=== PATIENT | female | born 1990 | race Caucasian/White ===

== ENCOUNTER 2019-04-20 23:36 | Emergency (ER) | payer BC, OTHER ==
[2019-04-20 23:40] VITALS: RESP 18; TEMP 97.3
[2019-04-20] MEDS ORDERED: DIPH,PERTUS(ACELL)TETVAC-LF 0.5 ML VIAL IM ONE (23:49)
[2019-04-20] MEDS ORDERED: LIDOCAINE 1% INJ 10MG/ML (20 ML MDV) SQ ONE (23:49)
[2019-04-20] MEDS ORDERED: AMOXIC-POT CLAV 875MG STARTER 2 EACH TABLET PO STA (23:49)
[2019-04-20] MEDS ORDERED: WATER FOR IRRIG, STERILE 1,000 ML BTL IRRIGATION ONE (23:50)
--- NOTE | 2019-04-20 23:59 | ED ---
Animal Bite HPI - General Chief Complaint: Animal Bite Stated Complaint: Dog Bite Time Seen by Provider: 04/20/19 23:41 Source: patient Mode of arrival: ambulatory Limitations: no limitations - History of Present Illness Initial Comments: 28-year-old female patient presents to the emergency department today for evaluation of dog bite. Patient states that she was at her friend's house, playing with the puppy when it bit her right arm and then a little later bit her left leg. States that there is no bleeding from the right arm wound however she's been having difficulty getting the wound to the left leg to stop bleeding. Patient denies any difficulty with ambulation. Denies numbness or tingling to the lower extremities. She is unsure when her last tetanus vaccine was given. She is unsure of the immunization status of the dog. She states her friend has had the puppy for the last 2-3 months. She denies taking any medication for pain. Denies any chance of . Patient denies any headache, neck pain, back pain, chest pain, shortness of breath, dizziness, weakness, abdominal pain, nausea, vomiting, or difficulties with bowel movements or urination. - Related Data Home Medications Medication Instructions Recorded Confirmed Cholecalciferol [Vitamin D3] 400 unit PO DAILY@1200 11/16/14 11/16/14 Vit No.124/Iron/Folic 1 each PO DAILY 11/16/14 11/16/14 [ Vitamin Tablet] Previous Rx's Medication Instructions Recorded Amoxic-Pot Clav 875-125Mg 1 tab PO Q12HR #14 tablet 04/21/19 [Augmentin 875-125] Ibuprofen [Motrin] 600 mg PO Q8HR PRN #30 tab 04/21/19 Allergies Allergy/AdvReac Type Severity Reaction Status Date / Time No Known Allergies Allergy Verified 11/16/14 17:36 Review of Systems ROS Statement: Those systems with pertinent positive or pertinent negative responses have been documented in the HPI. ROS Other: All systems not noted in ROS Statement are negative. Past Medical History Past Medical History: No Reported History History of Any Multi-Drug Resistant Organisms: None Reported Past Surgical History: Tonsillectomy Past Psychological History: No Psychological Hx Reported Smoking Status: Never smoker Past Alcohol Use History: None Reported Past Drug Use History: None Reported General Exam Limitations: no limitations General appearance: alert, in no apparent distress, other (Physical well- developed, well-nourished adult female patient in no acute distress. Vital signs upon presentation are temperature 97.3F, pulse 103, respirations 18, blood pressure 129/91, pulse ox 100% on room air.) Respiratory exam: Present: normal lung sounds bilaterally. Absent: respiratory distress, wheezes, rales, rhonchi, stridor Cardiovascular Exam: Present: regular rate, normal rhythm, normal heart sounds. Absent: systolic murmur, diastolic murmur, rubs, gallop, clicks Extremities exam: Present: full ROM, normal capillary refill, other (Patient has ecchymosis and abrasion to the right upper arm posteriorly. skin is otherwise pink, warm, dry. Cap refills less than 3 seconds. Radial pulses 2+ and equal bilaterally. Patient has ecchymosis, soft tissue swelling, and puncture wounds noted to the left lateral thigh. There is mild bloody drainage from the left lateral thigh. Skin is otherwise pink, warm, dry. Cap refills less than 3 seconds. Pedal pulses 2+ and equal bilaterally.). Absent: normal inspection, pedal edema, joint swelling, calf tenderness Course Vital Signs 04/20/19 23:37 Temperature 97.3 F L Pulse Rate 103 H Respiratory 18 Rate Blood Pressure 129/91 O2 Sat by Pulse 100 Oximetry Procedures - Laceration Laceration #1 Consent Obtained: verbal consent Indication: other (Dog bite/punctures) Site: lower extremity (Left thigh) Anesthetic Used: lidocaine 1% Anesthesia Technique: local infiltration Amount (mls): 10 Pre-repair: irrigated extensively Patient Tolerated Procedure: well, no complications Medical Decision Making - Medical Decision Making 28-year-old female patient presents into the emergency department today for evaluation of dog bite to the right arm and the left thigh. Physical examination did reveal ecchymosis and abrasion to the right upper arm. There are multiple punctures on 11 cm laceration to the left lateral thigh. Wounds to the left thyroid irrigated using sterile water. They were left open for healing by secondary intention. Started patient on Augmentin. Will give prescription for ibuprofen. She is educated regarding signs or symptoms of infe ction and wound care. She is instructed to follow-up with her primary care physician for recheck in 1-2 days. Return parameters were discussed in detail. She verbalizes understanding and agrees with this plan. Disposition Clinical Impression: Dog bite of right arm, Dog bite of left lower leg, Puncture wound of left thigh Disposition: HOME SELF-CARE Condition: Good Instructions (If sedation given, give patient instructions): Animal Bite (ED), Puncture Wound (ED), Contusion in Adults (ED) Additional Instructions: Complete antibiotic prescription in full. Take Tylenol Motrin for pain control. Keep wounds clean and dry. Apply ice to the painful areas. Follow-up with your primary care physician for recheck in 1-2 days. Return to the emergency department immediately for any new, worsening, or concerning symptoms. Prescriptions: Amoxic-Pot Clav 875-125Mg [Augmentin 875-125] 1 tab PO Q12HR #14 tablet Ibuprofen [Motrin] 600 mg PO Q8HR PRN #30 tab PRN Reason: Pain Is patient prescribed a controlled substance at d/c from ED?: No Referrals: Nida Leger DO [Primary Care Provider] - 1-2 days Time of Disposition: 00:34
[2019-04-21] MEDS ORDERED: IBUPROFEN 600 MG STARTER PACK 4 TAB BTL PO STA (00:22)
[2019-04-21 00:43] VITALS: BP 127/88; PULSE 98
== END 2019-04-21 00:43 | disposition home or self-care (01) ==
LOC: EC 23:36
DX: S71.112A Laceration without foreign body, left thigh, initial encounter (principal); S71.132A Puncture wound without foreign body, left thigh, initial encounter; S80.811A Abrasion, right lower leg, initial encounter; S81.852A Open bite, left lower leg, initial encounter; Z23 Encounter for immunization; W54.0XXA Bitten by dog, initial encounter; Y93.89 Activity, other specified; Y92.008 Other place in unspecified non-institutional (private) residence as the place of occurrence of the external cause
CPT/HCPCS: 90715; 99283; 90471; J2001

== ENCOUNTER 2020-10-12 10:34 | Emergency (ER) | payer OTHER ==
[2020-10-12 10:43] VITALS: BP 116/66; PULSE 83; RESP 16; TEMP 98
[2020-10-12] MEDS ORDERED: AMOXIC-POT CLAV 875MG STARTER PACK 2 TAB BTL PO STA (10:51)
--- NOTE | 2020-10-12 11:25 | ED ---
Animal Bite HPI - General Chief Complaint: Animal Bite Stated Complaint: Dogbite,Vomitting Time Seen by Provider: 10/12/20 10:44 Source: patient Mode of arrival: ambulatory Limitations: no limitations - History of Present Illness Initial Comments: 29-year-old female presenting to the emergency department today for chief complaint of left buttock dog bite 4 days ago. Patient states that she has had a left buttock bite from her dog 4 days ago. Patient states it was bruised she states the bruise appears flat is warm to touch. Patient denies any drainage or purulence she denies any fevers chills or general malaise. Patient states she's had some nausea with this assessment ongoing 8 months since her daughter's , they're currently working on different types of hormones to control heavy vaginal bleeding--and has been nauseated from this denies abdominal pain, chest pain, dyspnea, weakness, pallor, dyspnea on exertion or cold intolerance. Blaine kuhn has no additional complaints. - Related Data Previous Rx's Medication Instructions Recorded Amoxicillin/Potassium Clav 1 tab PO Q12HR 7 Days #14 tab 10/12/20 [Augmentin 875-125 Tablet] Ondansetron Odt [Zofran Odt] 4 mg PO Q8HR PRN 7 Days #21 tab 10/12/20 Allergies Allergy/AdvReac Type Severity Reaction Status Date / Time No Known Allergies Allergy Verified 11/16/14 17:36 Review of Systems ROS Statement: Those systems with pertinent positive or pertinent negative responses have been documented in the HPI. ROS Other: All systems not noted in ROS Statement are negative. Past Medical History Past Medical History: No Reported History History of Any Multi-Drug Resistant Organisms: None Reported Past Surgical History: Tonsillectomy Past Psychological History: No Psychological Hx Reported Past Alcohol Use History: None Reported Past Drug Use History: None Reported General Exam - General Exam Comments Initial Comments: General: The patient is awake and alert, in no distress Eye: +3 mm pupils are equal, round and reactive to light, extra-ocular movements are intact. No nystagmus. There is normal conjunctiva bilaterally. No signs of icterus. Ears, nose, mouth and throat: There are moist mucous membranes and no oral lesions. Neck: The neck is supple, there is no tenderness or JVD. Cardiovascular: There is a regular rate and rhythm. No murmur, rub or gallop is appreciated. Respiratory: Lungs are clear to auscultation, respirations are non-labored, john paul ath sounds are equal. No wheezes, stridor, rales, or rhonchi. Gastrointestinal: Soft, non-distended, non-tender abdomen without masses or organomegaly noted. There is no rebound or guarding present. Musculoskeletal: Normal ROM, no tenderness. Strength 5/5. Sensation intact. Radial pulses equal bilaterally 2+. Neurological: A&O x 3. CN II-XII intact grossly, There are no obvious motor or sensory deficits. Coordination appears grossly intact. Speech is normal. Skin: Skin is warm and dry and no rashes. Bruising yellow, purple on the left mid buttock with 3 punctures, no palpable indurations or hematoma, warm to touch. Psychiatric: Cooperative, appropriate mood & affect, normal judgment. Limitations: no limitations Course Vital Signs 10/12/20 10:36 Temperature 98.0 F Pulse Rate 83 Respiratory 16 Rate Blood Pressure 116/66 O2 Sat by Pulse 98 Oximetry Medical Decision Making - Medical Decision Making 29 yo presenting for dog bite. no drainage or overt redness, is warm to touch without obvious hematoma. Patient hcg (-) no abdominal pain, no fevers, no weakness and she states she will continue to monitor patients nausea with pcp. - Lab Data Lab Results 10/12/20 Range/Units 11:02 Urine HCG, Qual Not Detected (Not Detectd) Disposition Clinical Impression: Dog bite, Nausea Disposition: HOME SELF-CARE Condition: Good Instructions (If sedation given, give patient instructions): Animal Bite (ED) Additional Instructions: Please use medication as discussed. Please follow-up with family doctor in the next 2 days. Please return to emergency room if the symptoms increase or worsen or for any other concerns. Prescriptions: Amoxicillin/Potassium Clav [Augmentin 875-125 Tablet] 1 tab PO Q12HR 7 Days #14 tab Ondansetron Odt [Zofran Odt] 4 mg PO Q8HR PRN 7 Days #21 tab PRN Reason: Nausea Is patient prescribed a controlled substance at d/c from ED?: No Referrals: Harika Posada PAC [REFERRING] - 1-2 days Time of Disposition: 11:25
== END 2020-10-12 11:27 | disposition home or self-care (01) ==
LOC: EC 10:34
DX: S31.825A Open bite of left buttock, initial encounter (principal); R11.0 Nausea; W54.0XXA Bitten by dog, initial encounter
CPT/HCPCS: 81025; 99284

== ENCOUNTER 2024-12-27 21:56 | Emergency (ER) | payer OTHER ==
[2024-12-27 22:18] VITALS: RESP 18; TEMP 97.9
[2024-12-27] MEDS: methylPREDNISolone SOD SUCCI 125 MG/2 ML VIAL IM ONE (23:58)
[2024-12-27] MEDS: diphenhydrAMINE 50 MG/ML 1 ML VIAL IM STA (23:58)
[2024-12-28 00:52] LABS: Basophils # (A) 0.04 10*3/uL (0.00-0.10); Basophils % (A) 0.5 %; Eosinophils % (A) 3.7 %; HGB 15.5 g/dL (12.0-15.0); Lymphocytes # (A) 2.61 10*3/uL (0.90-5.00); Lymphocytes % (A) 32.4 %; MCH 29.9 pg (27.0-32.0); MCHC 33.7 g/dL (32.0-37.0); MCV 88.8 fL (80.0-97.0); Mean Platelet Volume 9.8 fL (9.5-12.2); Monocytes # (A) 0.42 10*3/uL (0.20-1.00); Monocytes % (A) 5.2 %; Neutrophils # (A) 4.66 10*3/uL (1.80-7.70); Platelet Count 218 10*3/uL (140-440); RBC 5.18 10*6/uL (4.10-5.20); WBC 8.05 10*3/uL (4.50-10.00)
[2024-12-28 01:05] LABS: ALT 24 U/L (4-34); AST 26 U/L (14-36); African American GFR (CKD) >90 (>60 ml/min/1.73 sqM); Albumin 4.4 g/dL (3.5-5.0); Alkaline Phosphatase 48 U/L (38-126); Anion Gap 10 mmol/L; Blood Urea Nitrogen 15 mg/dL (7-17); Calcium 10.1 mg/dL (8.4-10.2); Carbon Dioxide 23 mmol/L (22-30); Chloride 104 mmol/L (98-107); Glucose 85 mg/dL (74-99); Non-African American GFR(CKD) >90 (>60 ml/min/1.73 sqM); Potassium 4.5 mmol/L (3.5-5.1); Sodium 137 mmol/L (137-145); Total Bilirubin 0.5 mg/dL (0.2-1.3); Total Protein 7.2 g/dL (6.3-8.2)
--- NOTE | 2024-12-28 01:17 | ED ---
Skin/Abscess/FB HPI - General Chief complaint: Skin/Abscess/Foreign Body Stated complaint: Rash Time Seen by Provider: 12/28/24 01:15 Source: patient, RN notes reviewed Mode of arrival: ambulatory Limitations: no limitations - History of Present Illness Initial comments: 34-year-old female presenting for rash x 1 day. States she woke up from a nap around 3 PM today with a rash on her bilateral elbows and both sides of her abdomen. Reports rash is itchy and painful. Also endorses multiple blisters overlying the red rash. States she had similar symptoms 2 weeks ago on the legs and was given Bactrim and Keflex. States she does work as a [employer] and was exposed to MRSA a couple of weeks ago. Denies fever, shortness of breath, lip or tongue swelling. Denies new lotions, soaps, medications, or detergents. Takes no daily medications. - Related Data Previous Rx's Medication Instructions Recorded Amoxicillin/Potassium Clav 1 tab PO Q12HR 7 Days #14 tab 10/12/20 [Augmentin 875-125 Tablet] Ondansetron Odt [Zofran Odt] 4 mg PO Q8HR PRN 7 Days #21 tab 10/12/20 Cephalexin [Keflex] 500 mg PO Q6HR 7 Days #28 cap 12/19/24 Sulfamethox-Tmp 800-160Mg [Bactrim 1 tab PO Q12HR 7 Days #14 tab 12/19/24 DS 800-160 mg] Hydrocortisone Oint 1 applic TOPICAL BID #28 gm 12/28/24 [Hydrocortisone 2.5% Oint] predniSONE [Deltasone] 40 mg PO DAILY #10 tab 12/28/24 Allergies Allergy/AdvReac Type Severity Reaction Status Date / Time No Known Allergies Allergy Verified 12/19/24 00:14 Review of Systems ROS Statement: Those systems with pertinent positive or pertinent negative responses have been documented in the HPI. ROS Other: All systems not noted in ROS Statement are negative. Past Medical History Past Medical History: No Reported History History of Any Multi-Drug Resistant Organisms: None Reported Past Surgical History: Tonsillectomy Past Psychological History: No Psychological Hx Reported Smoking Status: Current every day smoker Past Alcohol Use History: Rare Past Drug Use History: None Reported General Exam Limitations: no limitations General appearance: alert, in no apparent distress Head exam: Present: atraumatic, normocephalic, normal inspection Eye exam: Present: normal appearance, PERRL, EOMI. Absent: scleral icterus, conjunctival injection, periorbital swelling ENT exam: Present: normal exam, normal oropharynx, mucous membranes moist Respiratory exam: Present: normal lung sounds bilaterally. Absent: respiratory distress, wheezes, rales, rhonchi, stridor Cardiovascular Exam: Present: regular rate, normal rhythm, normal heart sounds. Absent: systolic murmur, diastolic murmur, rubs, gallop, clicks Neurological exam: Present: alert, oriented X3 Psychiatric exam: Present: normal affect, normal mood Skin exam: Present: warm, dry, intact, normal color, rash (Raised erythematous plaques on bilateral elbows and bilateral flank with multiple overlying fluid- filled blisters) Course Vital Signs 12/27/24 22:15 Temperature 97.9 F Pulse Rate 98 Respiratory 18 Rate Blood Pressure 138/92 O2 Sat by Pulse 100 Oximetry Medical Decision Making - Medical Decision Making Was pt. sent in by a medical professional or institution (, PA, STORE M[facility], urgent care, hospital, or long term...) When possible be specific @ -No Did you speak to anyone other than the patient for history (EMS, parent, family, police, friend...)? What history was obtained from this source @ -No Did you review nursing and triage notes (agree or disagree)? Why? @ -I reviewed and agree with nursing and triage notes Were old charts reviewed (outside hosp., previous admission, EMS record, old EKG, old radiological studies, urgent care reports/EKG's, long term records)? Report findings @ -No old charts were reviewed Differential Diagnosis (chest pain, altered mental status, abdominal pain women, abdominal pain men, vaginal bleeding, weakness, fever, dyspnea, syncope, headache, dizziness, GI bleed, back pain, seizure, CVA, palpatations, mental health, musculoskeletal)? @ -Contact dermatitis, poison oak, cellulitis, allergic reaction, hives EKG interpreted by me (3pts min.). @ -None X-rays interpreted by me (1pt min.). @ -None done CT interpreted by me (1pt min.). @ -None done U/S interpreted by me (1pt. min.). @ -None done What testing was considered but not performed or refused? (CT, X-rays, U/S, labs)? Why? @ -None What meds were considered but not given or refused? Why? @ -None Did you discuss the management of the patient with other professionals (professionals i.e. , PA, STORE [facility], lab, RT, psych nurse, social studies department chair, insurance sales executive, teacher, bomb squad officer, case monitor)? Give summary @ -No Was smoking cessation discussed for >3mins.? @ -No Was critical care preformed (if so, how long)? @ -No Were there social determinants of health that impacted care today? How? (Homelessness, low income, unemployed, alcoholism, drug addiction, transportation, low edu. Level, literacy, decrease access to med. care, senior care, rehab)? @ -No Was there de-escalation of care discussed even if they declined (Discuss DNR or withdrawal of care, Hospice)? DNR status @ -No What co-morbidities impacted this encounter? (DM, HTN, Smoking, COPD, CAD, Cancer, CVA, ARF, Chemo, Hep., AIDS, mental health diagnosis, sleep apnea, morbid obesity)? @ -None Was patient admitted / discharged? Hospital course, mention meds given and route, prescriptions, significant lab abnormalities, going to OR and other pertinent info. @Discharge. 34-year-old female presenting for rash x 1 day on elbows and bilateral flanks. Patient is afebrile. No systemic symptoms. No known triggers. History and physical examination consistent with contact dermatitis. Lab work unremarkable. Patient was provided with IM steroid and Benadryl. Patient will be provided with outpatient course of prednisone and topical steroid and advised to follow-up with dermatology. Appropriate return precautions and supportive care discussed. Case was discussed with my ED attending Dr. Reed. Undiagnosed new problem with uncertain prognosis? @ -No Drug Therapy requiring intensive monitoring for toxicity (Heparin, Nitro, Insulin, Cardizem)? @ -No Were any procedures done? @ -No Diagnosis/symptom? @ -Contact dermatitis Acute, or Chronic, or Acute on Chronic? @ -Acute Uncomplicated (without systemic symptoms) or Complicated (systemic symptoms)? @ -Uncomplicated Side effects of treatment? @ -No Exacerbation, Progression, or Severe Exacerbation? @ -No Poses a threat to life or bodily function? How? (Chest pain, [place], [place], pneumonia, PE, COPD, DKA, ARF, appy, cholecystitis, CVA, Diverticulitis, Homicidal, Suicidal, threat to staff... and all critical care pts) @ -No - Lab Data Result diagrams: 12/28/24 00:30 12/28/24 00:30 Lab Results 12/28/24 12/28/24 Range/Units 00:30 00:30 WBC 8.05 (4.50-10.00) 10*3/uL RBC 5.18 (4.10-5.20) 10*6/uL Hgb 15.5 H (12.0-15.0) g/dL Hct 46.0 (37.2-46.3) % MCV 88.8 (80.0-97.0) fL MCH 29.9 (27.0-32.0) pg MCHC 33.7 (32.0-37.0) g/dL Plt Count 218 (140-440) 10*3/uL MPV 9.8 (9.5-12.2) fL Immature Gran % (Auto) 0.2 % Neutrophils % 58.0 % Lymphocytes % 32.4 % Monocytes % 5.2 % Eosinophils % 3.7 % Basophils % 0.5 % Immature Gran # 0.02 (0.00-0.04) 10*3/uL Neutrophils # 4.66 (1.80-7.70) 10*3/uL Lymphocytes # 2.61 (0.90-5.00) 10*3/uL Monocytes # 0.42 (0.20-1.00) 10*3/uL Eosinophils # 0.30 (0.04-0.35) 10*3/uL Basophils # 0.04 (0.00-0.10) 10*3/uL Sodium 137 (137-145) mmol/L Potassium 4.5 (3.5-5.1) mmol/L Chloride 104 (98-107) mmol/L Carbon Dioxide 23 (22-30) mmol/L Anion Gap 10 mmol/L BUN 15 (7-17) mg/dL Creatinine 0.64 (0.52-1.04) mg/dL Est GFR (CKD-EPI)AfAm >90 (>60 ml/min/1.73 sqM) Est GFR (CKD-EPI)NonAf >90 (>60 ml/min/1.73 sqM) Glucose 85 (74-99) mg/dL Calcium 10.1 (8.4-10.2) mg/dL Total Bilirubin 0.5 (0.2-1.3) mg/dL AST 26 (14-36) U/L ALT 24 (4-34) U/L Alkaline Phosphatase 48 (38-126) U/L Total Protein 7.2 (6.3-8.2) g/dL Albumin 4.4 (3.5-5.0) g/dL Disposition Clinical Impression: Contact dermatitis Disposition: HOME SELF-CARE Condition: Stable Instructions (If sedation given, give patient instructions): Contact Dermatitis (ED) Additional Instructions: Start prednisone tomorrow. Use topical hydrocortisone on affected areas. Take [id number] Benadryl as needed for itching. I recommend following up with dermatology for further testing and evaluation. Please return to the Emergency Department if symptoms worsen or any other concerns. Prescriptions: predniSONE [Deltasone] 40 mg PO DAILY #10 tab Hydrocortisone Oint [Hydrocortisone 2.5% Oint] 1 applic TOPICAL BID #28 gm Is patient prescribed a controlled substance at d/c from ED?: No Referrals: Nida Leger DO [Primary Care Provider] - 1-2 days Time of Disposition: 01:17
[2024-12-28 01:55] VITALS: BP 129/84; PULSE 81
== END 2024-12-28 01:55 | disposition home or self-care (01) ==
LOC: EC 21:56
DX: L25.9 Unspecified contact dermatitis, unspecified cause (principal); F17.200 Nicotine dependence, unspecified, uncomplicated
CPT/HCPCS: 99283; 96372; J1200; J2919; 36415; 80053; 85025; 87070; 87205